=== PATIENT | male | born 1955 | race Caucasian/White ===

== ENCOUNTER 2016-10-30 16:10 | Emergency (ER) | payer OTHER ==
[~2016-10-30 16:10] MED LIST: AMBIEN10 MG PO; ASPIRIN325 M3 PO; CELEBREX200 M1 PO; CENTRAL VITE; CPAP; FENOFIBRATE134 M1 PO; FISH OIL 1,0001 CA; HUMIRA40 MG/0.1 SQ; KEFLEX500 M4 PO; LEVAQUIN750 MG PO; LIPITOR10 M1 PO; METHOTREXATE2.5 MG PO; MILK OF MAGNESIA PO; NORCO 5/325 TAB1 TAB PO; OXYCODONE HCL5 M1 PO; PERCOCET 5/3251 TAB PO; PERCOCET 5MG/AP1 TAB PO; PRILOSEC OTC20 M1 PO; REMICADE100 MG IV; TRAMADOL HCL50 M2 PO; TYLENOL325 M2 PO; TYLENOL500 MG; ULTRAM50 M1 PO; ZOFRAN4 MG PO
[2016-10-30] MEDS ORDERED: FENOFIBRATE134 M1 PO (16:24)
[2016-10-30] MEDS ORDERED: REMICADE100 MG IV (16:25)
[2016-10-30 16:59] LABS: URINE APPEARANCE HAZY; URINE BILIRUBIN NEGATIVE (NEG); URINE BLOOD SMALL (NEG); URINE COLOR YELLOW; URINE GLUCOSE (UA) NEGATIVE (NEG); URINE KETONE NEGATIVE (NEG); URINE LEUKOCYTE ESTERASE NEGATIVE (NEG); URINE NITRITE NEGATIVE (NEG); URINE PROTEIN NEGATIVE (NEG); URINE SPECIFIC GRAVITY 1.015 (1.003-1.030)
[2016-10-30 17:03] LABS: URINE EPITHELIAL CELLS 0 /[HPF] (0-10); URINE WBC 0 /[HPF] (0-5)
[2016-10-30 17:04] LABS: URINE BACTERIA 1+
[2016-10-30 17:07] LABS: CREATININE 1.01 mg/dl (0.60-1.30); eGFR VALUE FOR BLACK >90 mL/Min
[2016-10-30] MEDS ORDERED: ZOFRAN4 M2 PO (17:37)
[2016-10-30] MEDS ORDERED: ULTRAM50 M1 PO (17:37)
[2016-10-30] MEDS ORDERED: FLOMAX0.4 M1 PO (17:37)
[2016-10-30] MEDS ORDERED: PERCOCET 5-3251 EACH PO (17:37)
[2016-10-30] MEDS ORDERED: CEPHALEXIN500 M1 PO (17:37)
== END 2016-10-30 18:14 ==
LOC: EDMED 16:10
PROVIDERS: Emergency Medicine
DX: N20.1 Calculus of ureter (principal); Z87.442 Personal history of urinary calculi; Z87.891 Personal history of nicotine dependence; Z96.643 Presence of artificial hip joint, bilateral
CPT/HCPCS: J1885; J2270; J2405; J7030